=== PATIENT | female | born 1990 | race Caucasian/White ===

== ENCOUNTER 2018-11-01 01:49 | Emergency (ER) | payer BC ==
[~2018-11-01] VITALS: Ht 157.5 cm; Wt 57.2 kg
[2018-11-01] MEDS ORDERED: ONDANSETRON ODT 4 MG TAB.RAPDIS SL ONE (02:15)
[2018-11-01] MEDS ORDERED: HYDROMORPHONE HCL 2 MG TABLET PO ONE (02:15)
[2018-11-01] MEDS ORDERED: HYDROMORPHONE HCL 2 MG TABLET ONE (02:18)
[2018-11-01] MEDS ORDERED: ONDANSETRON ODT 4 MG TAB.RAPDIS ONE (02:19)
--- NOTE | 2018-11-01 02:33 | NUR ---
Xray at bedside.
[2018-11-01 02:45] LABS: BASOPHILS % (AUTO) 0.4 % (0.0-2.0); EOSINOPHILS % (AUTO) 0.1 % (0.0-7.0); HEMATOCRIT 39.7 % (31.2-41.9); HEMOGLOBIN 13.4 g/dL (10.9-14.3); LYMPHOCYTES # (AUTO) 1.2 K/uL (20.0-40.0); LYMPHOCYTES % (AUTO) 10.4 % (20.5-51.5); MEAN CORPUSCULAR HEMOGLOBIN 29.1 uug (24.7-32.8); MEAN CORPUSCULAR HGB CONC 34 g/dL (32.3-35.6); MEAN CORPUSCULAR VOLUME 86.3 fL (75.5-95.3); MONOCYTES # (AUTO) 0.5 K/uL (2.0-10.0); MONOCYTES % (AUTO) 4.4 % (0.0-11.0); NEUTROPHILS # (AUTO) 10.2 K/uL (1.8-8.9); NEUTROPHILS % (AUTO) 84.7 % (38.5-71.5); PLATELET COUNT (AUTO) 161 K/uL (179-408)
[2018-11-01 02:55] LABS: CREATININE 0.7 mg/dL (0.6-1.3); POTASSIUM 3.5 mmol/L (3.5-5.1)
[2018-11-01 02:59] LABS: *BILIRUBIN,URIN NEGATIVE (NEGATIVE); *BLOOD, URINE Trace-intact (NEGATIVE); *CLARITY,URINE CLEAR (CLEAR); *KETONES,URINE NEGATIVE (NEGATIVE); *UROBILINOGEN,URINE 0.2 E.U./dl (NORMAL); LEUKOCYTE ESTERASE ,URINE 1+ (NEGATIVE); NITRITE, URINE NEGATIVE (NEGATIVE); UGLUCOSE NEGATIVE (NEGATIVE)
[2018-11-01 03:00] LABS: *COLOR,URINE STRAW (YELLOW)
[2018-11-01 03:02] LABS: BILIRUBIN,DIRECT 0.1 mg/dL (0.0-0.2); BILIRUBIN,TOTAL 0.5 mg/dL (0.2-1.0); TOTAL PROTEIN, SERUM 7.5 g/dL (6.4-8.2)
[2018-11-01 03:05] LABS: BACTERIA,URINE NONE SEEN /HPF (NONE SEEN); RBC,URINE 0-3 /HPF (0-3); SQUAMOUS EPITHELIAL CELL,UR FEW /HPF (NONE SEEN)
[2018-11-01] MEDS ORDERED: PIPERACILLIN/TAZOBACTAM/D5W 50 ML IV ONE (03:20)
[2018-11-01] MEDS ORDERED: PIPERACILLIN SODIUM/TAZOBACTAM 3.375 G in IV DEXTROSE 5% 50 ML IV ONE (03:30)
--- NOTE | 2018-11-01 03:39 | NUR ---
IV removed. Catheter intact and site benign. Pressure and 4x4 gauze applied to site. No bleeding noted.
[2018-11-01 03:40] VITALS: BP 117/65
--- NOTE | 2018-11-01 03:41 | NUR ---
Patient discharged to home in stable conditon with mother taking patient home. Written and verbal after care instructions given. Patient verbalizes understanding of instructions. Walked out of ER with no distress noted
== END 2018-11-01 03:42 | disposition home or self-care (01) ==
LOC: ER 01:52
DX: N61.0 Mastitis without abscess (principal); R51 Headache; Z88.8 Allergy status to other drugs, medicaments and biological substances
CPT/HCPCS: 36415; 71045; 80048; 80076; 81001; 83605; 84702; 85025; 87040 ×2; 87086; 87400; 93005; 96365; 99284; J2543; A4663; Q0162

== ENCOUNTER 2024-08-18 07:56 | Emergency (ER) | payer BC, OTHER ==
[~2024-08-18] VITALS: Ht 157.5 cm; Wt 49.9 kg
[2024-08-18] MEDS ORDERED: AMOX500T2 PO (10:30)
[2024-08-18] MEDS ORDERED: ACET1TAB23 PO (10:30)
[2024-08-18] MEDS ORDERED: predniSONE 50 MG TABLET ONE (10:33)
[2024-08-18] MEDS ORDERED: AMOXicillin 250 MG CAPSULE ONE (10:33)
[2024-08-18] MEDS ORDERED: ACETAMINOPHEN/CODEINE 300-30 MG TABLET ONE (10:33)
[2024-08-18] MEDS: predniSONE 50 MG TABLET PO ONE (10:36)
[2024-08-18] MEDS: AMOXicillin 250 MG CAPSULE PO ONE (10:36)
[2024-08-18] MEDS: ACETAMINOPHEN/CODEINE 300-30 MG TABLET PO ONE (10:37)
[2024-08-18 10:40] VITALS: BP 108/59; TEMP 99.6; O2SAT 100
== END 2024-08-18 10:41 | disposition home or self-care (01) ==
LOC: ER 07:56
DX: J02.0 Streptococcal pharyngitis (principal); G43.909 Migraine, unspecified, not intractable, without status migrainosus; Z20.822 Contact with and (suspected) exposure to COVID-19; Z79.899 Other long term (current) drug therapy; Z88.6 Allergy status to analgesic agent; Z88.7 Allergy status to serum and vaccine
CPT/HCPCS: 99284; 87426; 87804 ×2; 86403; J7512; A4606; A4663